=== PATIENT | male | born 1980 | race Caucasian/White ===

== ENCOUNTER 2018-09-12 08:01 | Inpatient (IN) | payer OTHER ==
[2018-09-11 17:33] VITALS: BMI 42.0
--- NOTE | 2018-09-12 09:28 | HP ---
Admitting History and Physical - Admission Chief Complaint: Morbid obesity History Source: Patient Limitations to Obtaining History: No Limitations - Smoking History Smoking history: Current every day smoker Aproximately how many cigarettes per day: 1 - Alcohol/Substance Use Hx Alcohol Use: No Home Medications - Allergies Allergies/Adverse Reactions: Allergies Allergy/AdvReac Type Severity Reaction Status Date / Time No Known Allergies Allergy Verified 09/11/18 17:33 - Home Medications Home Medications: Ambulatory Orders NK [No Known Home Medication] 09/11/18 Family Disease History - Family Disease History Family History: Denies Review of Systems - Review of Systems Constitutional: denies: Chills, Fever Neck: reports: No Symptoms Cardiovascular: reports: No Symptoms Respiratory: reports: No Symptoms Gastrointestinal: reports: No Symptoms Neurological: reports: No Symptoms Pain Intensity: 0 Physical Examination Vital Signs: Vital Signs Temperature 98.9 F 09/12/18 08:24 Pulse Rate 95 H 09/12/18 08:24 Respiratory Rate 18 09/12/18 08:24 Blood Pressure 145/95 09/12/18 08:24 O2 Sat by Pulse Oximetry (%) 100 09/12/18 08:49 Constitutional: Yes: Calm HENT: Yes: WNL Neck: Yes: WNL Cardiovascular: Yes: WNL Respiratory: Yes: WNL Gastrointestinal: Yes: Soft, Abdomen, Obese Neurological: Yes: Alert, Oriented Problem List - Problems (1) Morbid obesity due to excess calories Code(s): E66.01 - MORBID (SEVERE) OBESITY DUE TO EXCESS CALORIES (2) BMI 40.0-44.9, adult Code(s): Z68.41 - BODY MASS INDEX (BMI) 40.0-44.9, ADULT Assessment/Plan Laparoscopic possible open vertical sleeve gastrectomy, possible liver biopsy, EGD
[2018-09-12] MEDS ORDERED: fentaNYL CITRATE 250 MCG/5 ML VIAL ONE (10:37)
[2018-09-12] MEDS ORDERED: ROCURONIUM BROMIDE 50 MG/5 ML VIAL ONE (10:37)
[2018-09-12] MEDS ORDERED: PROPOFOL 20 ML ONE ×2 (10:38→12:51)
[2018-09-12] MEDS ORDERED: DEXAMETHASONE SOD PHOSPHATE 4 MG/1 ML VIAL ONE (10:38)
[2018-09-12] MEDS ORDERED: LIDOCAINE HCL/PF 2% SDV 5ML VIAL ONE (10:38)
[2018-09-12] MEDS ORDERED: ROPIVACAINE HCL 0.5% 30ML VIAL ONE (11:03)
[2018-09-12] MEDS ORDERED: MIDAZOLAM HCL 2 MG/2 ML SINGLE DOSE VIAL ONE ×2 (11:08)
[2018-09-12] MEDS ORDERED: ceFAZolin SODIUM 1 GM VIAL IVPB ONE (13:00)
--- NOTE | 2018-09-12 13:10 | OP ---
Operative Note - Note: Operative Date: 09/12/18 Pre-Operative Diagnosis: Morbid Obesity Operation: Laparoscopic assisted verticle sleeve gastrectomy, lysis of adhesions , liver biopsy, egd Findings: as dictated Implants: none Post-Operative Diagnosis: Same as Pre-op Surgeon: Estiven Jeong Regulatory Affairs Manager: Radha Joshi Anesthesiologist/ASSOCIATE RESEARCH SCIENTIST: Rashawn Bloom Anesthesia: General, Local (20cc .25% Marcaine injected to incision sites at completion of case ) Specimens Removed: greater curvature of stomach Estimated Blood Loss (mls): 50 (ml) Drains & Tubes with Location: none Fluid Volume Replaced (mls): 1,200 (ml LR) Operative Report Dictated: Yes
--- NOTE | 2018-09-12 13:13 | SURG ---
Surgery Mica Inspector Note Mica Inspector: Radha Joshi PA-C (Suzy) Diagnosis: Morbid Obesity Procedure: Laparoscopic assisted verticle sleeve gastrectomy, lysis of adhesions, liver biopsy, egd I was present for the entirety of the operative procedure. For further detail, please refer to operative report. Visit type - Case Type Case Type: Scheduled - Emergency Emergency Visit: No - New patient This patient is new to me today: Yes Date on this admission: 09/12/18 - Critical Care Critical Care patient: No
[2018-09-12] MEDS ORDERED: NEOSTIGMINE METHYLSULFATE 0.5 MG/ML - 10 ML MDV ONE (14:10)
[2018-09-12] MEDS ORDERED: GLYCOPYRROLATE 0.2 MG/1 ML VIAL ONE ×2 (14:10)
[2018-09-12] MEDS ORDERED: BUPIVACAINE HCL/PF 0.5% (5MG/ML) 10 ML VIAL IJ ONE (14:18)
--- NOTE | 2018-09-12 14:21 | OP ---
Operative Note - Note: Operative Date: 09/12/18 Pre-Operative Diagnosis: Morbid obesity Operation: Laparoscopic vertical sleeve gastrectomy, wedge liver biopsy, EGD Post-Operative Diagnosis: Same as Pre-op Surgeon: Estiven Jeong Reference Assistant: Martinez French Anesthesia: General Specimens Removed: Greater curvature of stomach. liver biopsy Estimated Blood Loss (mls): 30 Drains & Tubes with Location: 36 fr Bougie Operative Report Dictated: Yes
[2018-09-12] MEDS ORDERED: HYDROmorphone HCL CARPU-JECT 2 MG/1 ML DISP.SYRIN IVPB PRN (14:23)
--- NOTE | 2018-09-12 14:38 | SURG ---
Surgery Air And Hydronic Balancing Technician Note Air And Hydronic Balancing Technician: Martinez French PA-C Date of Service: 09/12/18 Diagnosis: Morbid obesity due to excess calories Procedure: Laproscopic sleeve gastrectomy, liver biopsy I was present for the entirety of the operative procedure. For further detail, please refer to operative report. Visit type - Case Type Case Type: Scheduled - Emergency Emergency Visit: No - New patient This patient is new to me today: Yes Date on this admission: 09/12/18 - Critical Care Critical Care patient: No
[2018-09-12] MEDS: ACETAMINOPHEN 1000 MG/100 ML VIAL (NON FORMULARY) IVPB SCH ×2 (14:45→19:56)
[2018-09-12] MEDS: ONDANSETRON 4 MG/2 ML VIAL IVPUSH SCH ×3 (14:50→23:37)
[2018-09-12] MEDS: METOCLOPRAMIDE HCL INJECTION 10 MG/2 ML VIAL IVPUSH SCH ×2 (15:00→21:31)
--- NOTE | 2018-09-12 15:09 | SPEC ---
DATE OF OPERATION: 09/12/2018 SURGEON: Estiven Jeong M.D. DIRECTOR OF CONSULTING SERVICES: Martinez French PA-C PREOPERATIVE DIAGNOSES: 1. Morbid obesity. 2. Body mass index of 42. POSTOPERATIVE DIAGNOSES: 1. Morbid obesity. 2. Body mass index of 42. 3. Hepatomegly. PROCEDURES PERFORMED: 1. Laparoscopic vertical sleeve gastrectomy. 2. Laparoscopic wedge liver biopsy. 3. Upper endoscopy/esophagogastroduodenoscopy. SPECIMENS: 1. Greater curvature of the stomach. 2. Liver biopsy. ESTIMATED BLOOD LOSS: 30 mL. DRAINS: None. ANESTHESIA: GET. BOUGIE: Size 36 Vincentian. REASON FOR PROCEDURE: This is a 38-year-old gentleman who presents for weight loss options. After describing the different options, he decided to proceed with a laparoscopic, possible open vertical sleeve gastrectomy with wedge liver biopsy. RISKS AND BENEFITS: After describing the different options for weight loss management, the patient decided to proceed with a laparoscopic, possible open vertical sleeve gastrectomy. The patient was seen by the respective subspecialties and cleared for surgery. The risks and benefits of the procedure were explained. These included bleeding, infection, hernia, FL, DVT, PE, injury to surrounding structures including the liver, colon, bowel, spleen, esophagus, vessel injury, nerve injury, weight regain, gastric leak, staple line leak, sleeve leak, obstruction, vitamin deficiency, hair loss and as some of the possible complications. The patient understood and signed informed consent. DESCRIPTION OF PROCEDURE: The patient was placed supine on the operating room table. The patient underwent general endotracheal intubation. The arms were brought out at 90 degrees and secured. A footboard was placed and the legs were secured laterally with padding. The abdomen was prepped and draped in the usual sterile fashion. A timeout was performed. An incision was made in the left upper quadrant and a Veress needle inserted. Pneumoperitoneum was established. Subsequently, the Veress needle was removed and a 5-mm trocar was placed under direct visualization with the laparoscope. The laparoscopic camera was then inserted and inspection of the abdominal cavity was performed. An incision was then made in the supraumbilical area and a 15-mm trocar was placed under direct visualization. A 5-mm trocar was then placed in the right upper quadrant and a 5-mm trocar was placed below the left subcostal margin. A stab wound was made in the subxiphoid area and a Nathalia clamp inserted and removed to dilate the tract. A Jami liver retractor was inserted. The post was secured at the bedside by the nursing staff. The patient was placed in steep reverse Trendelenburg position and the Jami liver retractor was used to secure the liver towards the anterior abdominal wall. The pylorus was identified and 6 cm proximal to it, the lesser sac was entered using the LigaSure device. All lateral attachments to the greater curvature of the stomach, including the short gastric vessels, were ligated using the LigaSure device toward the gastrosplenic and gastrophrenic ligaments. Once this was done in its entirety, it was confirmed that all tubes within the nasal or oropharyngeal cavity, including a temperature probe, was removed by Anesthesia. The bougie was then inserted by Anesthesia. Transection of the stomach was then begun staying adjacent to the bougie but away from the angularis. Transection of the stomach was performed near the portion of the stomach where the lesser sac was entered. Two laparoscopic Endo-BON black andrea were used at this location. Laparoscopic Endo BON purple staple loads were then used for the remainder of the transection until the greater curvature of the stomach was fully transected. This was done staying close to the bougie. Care was taken to stay away from the angle of His cephalad. The staple line was then inspected. Hemostasis was identified. A leak test was then performed. It was clamped distally to the staple line. Irrigation solution was placed in the left upper quadrant and air was insufflated by Anesthesia into the sleeve. No leaks were identified. No obstruction was identified. This was done through the entirety of the staple line. In addition, an upper endoscopy was performed. The endoscope was placed into the patients mouth and the entirety of the esophagus, GE junction, gastric pouch and staple line were inspected. No obstruction or leak was noted. The stomach was suctioned and the endoscope removed fully intact. At this point, the irrigation solution was suctioned and again, hemostasis was noted. A wedge liver biopsy was then performed. The left lobe of the liver was identified and a portion of the edge was grasped. Using electrocautery, a wedge of the liver was excised. This was removed and sent off the field as specimen. Hemostasis at the site of the wedge liver biopsy was attained using electrocautery. The 15-mm supraumbilical trocar was then removed and the greater curvature specimen removed from the site using a sponge stick cisse. The specimen was inspected and a Veress needle inserted. The specimen insufflated adequately and no leak was identified. The staple line was noted to be intact. A Nakul-Tony device was then used to close the fascia with a 0 Vicryl suture at the site. Again, hemostasis was noted. The Jami liver retractor was then removed under direct visualization. Pneumoperitoneum was desufflated and the fascial sutures were secured. Hemostasis was noted at all incision sites and Marcaine was injected at all incision sites. All incision sites were closed using 4-0 Biosyn. Sterile dressings were applied. The patient tolerated the procedure well and was transferred to the recovery room in stable condition. The patient was transferred to telemetry for further monitoring. Gwen MOORE/[id number]
[2018-09-12 15:58] LABS: HEMATOCRIT 42.2 % (35.4-49); HEMOGLOBIN 14.1 GM/dL (11.7-16.9); MCH 25.6 pg (25.7-33.7); MCHC 33.3 g/dl (32.0-35.9); MEAN CELL VOLUME 76.8 fl (80-96); MEAN PLT VOLUME 8.2 fl (7.5-11.1); PLATELET COUNT 277 K/MM3 (134-434); RDW 15.1 % (11.9-15.9); WHITE BLOOD COUNT 16.5 K/mm3 (4.0-10.0)
[2018-09-12 16:27] LABS: ALBUMIN 3.7 g/dl (3.4-5.0); ALK PHOS 109 U/L (45-117); ANION GAP 7 MMOL/L (8-16); BILIRUBIN,TOTAL 0.4 mg/dL (0.2-1); BLOOD UREA NITROGEN 7 mg/dL (7-18); CALCIUM 8.6 mg/dL (8.5-10.1); CHLORIDE 104 mmol/L (98-107); CO2 25 mmol/L (21-32); CREATININE 1.1 mg/dL (0.55-1.3); GLUCOSE,RANDOM 125 mg/dL (74-106); POTASSIUM 4.5 mmol/L (3.5-5.1); SGOT/AST 32 U/L (15-37); SGPT/ALT 41 U/L (13-61); SODIUM 137 mmol/L (136-145); TOT PROT 7.9 g/dl (6.4-8.2)
[2018-09-12] MEDS: SODIUM CHLORIDE 1,000 ML IV SCH (17:00)
[2018-09-12] MEDS ORDERED: HYDROmorphone HCl 2 MG/ML VIAL ONE (17:02)
[2018-09-12] MEDS ORDERED: ONDANSETRON 4 MG/2 ML VIAL ONE (19:49)
[2018-09-12] MEDS ORDERED: ACETAMINOPHEN INJECTION 100 ML IVPB ONE (19:49)
[2018-09-12] MEDS: FAMOTIDINE 20 MG/50 ML IVPB 20 MG/50 ML MG IVPB SCH (21:30)
[2018-09-12] MEDS: ENOXAPARIN NA (PORCINE) 40 MG/0.4 ML DISP.SYRIN SQ SCH (21:31)
[2018-09-12] MEDS: HYDROmorphone HCl 2 MG/ML VIAL IVPB PRN (23:36)
[2018-09-13] MEDS: METOCLOPRAMIDE HCL INJECTION 10 MG/2 ML VIAL IVPUSH SCH ×3 (02:21→14:34)
[2018-09-13] MEDS: ACETAMINOPHEN 1000 MG/100 ML VIAL (NON FORMULARY) IVPB SCH ×2 (02:22→08:58)
[2018-09-13] MEDS: HYDROmorphone HCl 2 MG/ML VIAL IVPB PRN ×3 (05:29→13:25)
[2018-09-13] MEDS: ONDANSETRON 4 MG/2 ML VIAL IVPUSH SCH ×3 (05:29→11:56)
[2018-09-13 06:16] LABS: HEMATOCRIT 36.1 % (35.4-49); HEMOGLOBIN 12.2 GM/dL (11.7-16.9); MCH 26.1 pg (25.7-33.7); MCHC 33.7 g/dl (32.0-35.9); MEAN CELL VOLUME 77.3 fl (80-96); MEAN PLT VOLUME 7.7 fl (7.5-11.1); PLATELET COUNT 268 K/MM3 (134-434); RBC 4.67 M/mm3 (4.00-5.60); RDW 15.1 % (11.9-15.9); WHITE BLOOD COUNT 11.7 K/mm3 (4.0-10.0)
[2018-09-13 06:41] LABS: ALBUMIN 3.4 g/dl (3.4-5.0); ALK PHOS 91 U/L (45-117); ANION GAP 9 MMOL/L (8-16); BILIRUBIN,TOTAL 0.6 mg/dL (0.2-1); BLOOD UREA NITROGEN 9 mg/dL (7-18); CALCIUM 8.2 mg/dL (8.5-10.1); CHLORIDE 106 mmol/L (98-107); CO2 22 mmol/L (21-32); GLUCOSE,RANDOM 97 mg/dL (74-106); POTASSIUM 4.4 mmol/L (3.5-5.1); SGOT/AST 23 U/L (15-37); SGPT/ALT 36 U/L (13-61); SODIUM 137 mmol/L (136-145)
--- NOTE | 2018-09-13 08:05 | PN ---
Addendum entered and electronically signed by Jose Baez PA 09/13/18 14:36: UGI: no leak, extravastion or gastric outlet obstruction. BST1 diet ordered dc home if tolerated. Original Note: Progress Note (short form) - Note Progress Note: POD #1 Alert. Recovering nicely from surgery. Standing in room upon my arrival this morning. C/o minimal incisional pain and left shoulder irritation (normal for procedure 2/2 to gas used during procedure). Using incentive spirometer as directed. Ambulating unassisted. Voiding spontaneously. Passing flatus. Denies n /v/f/c, CP, palpitations, SOB or CURTIS. Last Vital Signs Temp Pulse Resp BP Pulse Ox 98.9 F 102 H 18 148/96 98 09/13/18 05:00 09/13/18 05:00 09/13/18 05:00 09/13/18 05:00 09/12/18 21:00 CBC, BMP 09/13/18 05:30 09/13/18 05:30 Gen: nad ABD: obese body habitus. All surgical ports c/d/i. No hematoma LE: SCDs bilat. Soft. Non-tender. No edema. <Jose Baez - Last Filed: 09/13/18 07:58> - Note Progress Note: Agree POD 1 Pain controlled AVSS Abd soft UGI: no leak/obstruction Discharge planning <Estiven Jeong - Last Filed: 09/13/18 19:00> Problem List - Problems (1) Morbid obesity due to excess calories Assessment/Plan: POD #1 s/p Laparoscopic vertical sleeve gastrectomy, wedge liver biopsy, EGD 1. f/u UGI 2. If neg study can begin bariatric stage 1 protocol 3. Cont incentive spirometer 4. Pain management prn 5. Possible dc home today Code(s): E66.01 - MORBID (SEVERE) OBESITY DUE TO EXCESS CALORIES <Jose Baez - Last Filed: 09/13/18 07:58> - Problems (1) Morbid obesity due to excess calories Code(s): E66.01 - MORBID (SEVERE) OBESITY DUE TO EXCESS CALORIES (2) BMI 40.0-44.9, adult Code(s): Z68.41 - BODY MASS INDEX (BMI) 40.0-44.9, ADULT <Estiven Jeong - Last Filed: 09/13/18 19:00>
[2018-09-13] MEDS: FAMOTIDINE 20 MG/50 ML IVPB 20 MG/50 ML MG IVPB SCH (09:37)
[2018-09-13] MEDS: ENOXAPARIN NA (PORCINE) 40 MG/0.4 ML DISP.SYRIN SQ SCH (09:38)
--- NOTE | 2018-09-13 09:52 | PN ---
Progress Note (short form) - Note Progress Note: Post op day#1.S/P Gastric sleeve placement under GA with bilateral TAP block uneventful.Patient stableand c/o some pain for which he is on medication.No any anesthesia related problem.Patient DC from the anesthesia care.
[2018-09-13] MEDS: SODIUM CHLORIDE 1,000 ML IV SCH (13:33)
[2018-09-13] MEDS ORDERED: oxyCODONE HCL 5 MG TABLET PO PRN (13:51)
[2018-09-13] MEDS ORDERED: SODIUM CHLORIDE 1,000 ML IV SCH (14:00)
[2018-09-13 15:51] VITALS: BP 147/96; PULSE 107; TEMP 98.4
--- NOTE | 2018-09-15 17:56 | PATH ---
Surgical Pathology Report Patient Name: BELLA LOYD [facility]. Rec. #: [id number] /Age/Gender: 1980 (Age: 38) / M Account: [id number] Location: 4 W TELEMETRY U Taken: 09/12/2018 Received: 09/13/2018 Reported: 09/15/2018 Physicians: Estiven Jeong M.D. Specimen(s) Received A: GREATER CURVATURE STOMACH B: LIVER BIOPSY Clinical History Morbid obesity Final Diagnosis A. GREATER CURVATURE STOMACH, LAPAROSCOPIC VERTICAL SLEEVE GASTRECTOMY: SEGMENT OF STOMACH SHOWING ACTIVE CHRONIC GASTRITIS. IMMUNOSTAINING IS POSITIVE FOR H. PYLORI ORGANISMS. NEGATIVE FOR INTESTINAL METAPLASIA. B. LIVER, BIOPSY: LIVER TISSUE WITH STEATOSIS (30%) AND FOCAL MILD NONSPECIFIC PERIPORTAL CHRONIC INFLAMMATORY INFILTRATE. NO DEFINITIVE HISTOLOGIC EVIDENCE OF STEATOHEPATITIS. NO INCREASE IN FIBROSIS (TRICHROME STAIN) OR IRON (IRON STAIN) DEPOSITION. COMMENT: SUBCAPSULAR LIVER TISSUE. Electronically Signed Kyle Redd M.D. Gross Description A. Received in formalin, labeled "greater curvature stomach," is a 100 gram, 13.0 x 3.4 x 3.0 cm. portion of stomach with a stapled margin of resection. The serosa is clarke-sterling with minimal attached fat. The mucosa is clarke-red with focally flattened folds. No mucosal masses are identified. Sequins Slinger sections are submitted in one cassette. B. Received in formalin labeled "liver biopsy," is a 2.1 x 1.5 x 0.6 cm clarke, irregular portion of soft tissue, consistent with a portion of liver. The specimen is bisected and entirely submitted in one cassette. /09/13/2018 saudi09/13/2018
== END 2018-09-13 15:54 | disposition home or self-care (01) | DRG 403 ==
LOC: JSAMEDAYSX 08:01 → J4W 20:50
PROVIDERS: ADMIT Surgery; ATTEND Surgery
PROC: 0DB64Z3 Excision of Stomach, Percutaneous Endoscopic Approach, Vertical (ICD-10-PCS; principal; 2018-09-12 10:30)
PROC: 0FB24ZX Excision of Left Lobe Liver, Percutaneous Endoscopic Approach, Diagnostic (ICD-10-PCS; 2018-09-12 10:30)
PROC: 0DJ08ZZ Inspection of Upper Intestinal Tract, Via Natural or Artificial Opening Endoscopic (ICD-10-PCS; 2018-09-12 10:30)
DX: E66.01 Morbid (severe) obesity due to excess calories (principal); Z68.41 Body mass index [BMI] 40.0-44.9, adult; R16.0 Hepatomegaly, not elsewhere classified; F17.210 Nicotine dependence, cigarettes, uncomplicated
CPT/HCPCS: 36415; 74241-TC-FY; 80053; 85027; 86850; 86900; 86901; 88305-TC; 94010; 94760; J0131; J7030